=== PATIENT | male | born 1975 | race Caucasian/White ===

== ENCOUNTER 2016-04-27 17:25 | Inpatient (IN) | payer OTHER ==
[~2016-04-27] VITALS: Ht 175.3 cm; Wt 217.7 kg
--- NOTE | 2016-04-27 17:25 | NUR ---
Patient was BIBA at this time.
[2016-04-27 17:30] VITALS: BP 125/44
[2016-04-27] MEDS ORDERED: ASPIRIN81 M1 PO (17:34)
[2016-04-27] MEDS ORDERED: GLUCOPHAGE XR500 MG PO (17:34)
[2016-04-27] MEDS ORDERED: ZESTRIL2.5 MG PO (17:34)
[2016-04-27] MEDS ORDERED: PRAVACHOL20 MG PO (17:34)
--- NOTE | 2016-04-27 18:36 | NUR ---
Patient taken to bed 07.
--- NOTE | 2016-04-27 18:50 | NUR ---
PATIENT PRESENTS TO ED WITH C/O RIGHT FOOT PAIN X1 WEEK. PT STATES FOOT IS "LEAKING" . DENIES N/V/D; SKIN IS PINK/WARM/DRY; AAOX4 WITH EVEN AND STEADY GAIT; LUNGS CLEAR BL; HR EVEN AND REGULAR; PT DENIES ANY FEVER, CP, SOB, OR COUGH AT THIS TIME; PATIENT STATES PAIN OF 0/10 AT THIS TIME; VSS; PATIENT POSITIONED FOR COMFORT; HOB ELEVATED; BEDRAILS UP X2; BED DOWN. ER MD MADE AWARE OF PT STATUS.
[2016-04-27] MEDS ORDERED: KETOROLAC 30 MG/ML VIAL IVP ONE (19:35)
[2016-04-27] MEDS ORDERED: MORPHINE SULFATE 4 MG/ML SYR IVP ONE (20:35)
[2016-04-27] MEDS ORDERED: ceFAZolin 1,000 MG VIAL ONE (20:42)
--- NOTE | 2016-04-27 20:59 | NUR ---
PT RESTING IN BED AWAITING FOR A ROOM. PT ON MONITOR RECEIVING ANTIBIOTICS VIA IV, NO S/S OF DISTRESS NOTED, VSS. MOTEHR AT BEDSIDE.
--- NOTE | 2016-04-27 21:42 | NUR ---
Patient will be admitted to care of DR MORE. Admited to MED SURG. Will go to room 125 A. Belongings list completed. Report to JERRY GERARDO.
[2016-04-27] MEDS ORDERED: LORazepam 2 MG/ML VIAL IVP PRN (21:50)
[2016-04-27] MEDS ORDERED: VANCOMYCIN PER PHARMACY MC PRN (21:50)
[2016-04-27] MEDS ORDERED: ACETAMINOPHEN 325 MG TAB PO PRN (21:50)
[2016-04-27] MEDS ORDERED: ONDANSETRON 4 MG/2 ML VIAL IVP PRN (21:50)
[2016-04-27] MEDS ORDERED: MORPHINE SULFATE 2 MG/ML SYR IVP PRN (21:50)
--- NOTE | 2016-04-27 22:15 | NUR ---
PT TRASFERRED TO MED SURG VIA AUDRA BY ESTHER, EMT AND PEBBLES, EMT. NO S/S OF DISTRESS DURING TRASFER.
--- NOTE | 2016-04-27 22:20 | NUR ---
Admitted from [facility] with chief complaint of BILATERAL FOOT PAIN. A 40 y/o Male, Appropriate. ALERT AWAKE ORIENTED X4. INITIAL ASSESSMENT DONE. NO S/S OF RESPIRATORY DISTRESS OR SOB NOTED. ON O2 @ 2L/MIN VIA NASAL CANULA. SWELLING ON BOTH FEET NOTED D/T CELLULITIS. NO C/O PAIN OR ANY DISCOMFORT AT THIS TIME. PLAN OF CARE REVIEWED TO PT AND FAMILY AT BEDSIDE AND VERBALIZED UNDERSTANDING. oriented to call light, bed, phone,television, bathroom, smoking policy, visiting hours, procedures, ID bracelet on. Belongings list checked. CALL LIGHT WITHIN REACH. WILL CONTINUE TO MONITOR.
[2016-04-27] MEDS ORDERED: VANCOMYCIN 1GM/DEXT 5% PREMIX 400 ML IV SCH ×2 (22:40→23:21)
[2016-04-27] MEDS: LEVOFLOXACIN 500 MG/D5W PREMIX 100 ML IV SCH (22:48)
[2016-04-27] MEDS: NACL 0.9% 1,000 ML IV SCH (22:48)
[2016-04-27] MEDS ORDERED: VANCOMYCIN 1,000 MG VIAL ONE (23:54)
[2016-04-27] MEDS ORDERED: CLINDAMYCIN 600 MG/4 ML VIAL ONE (23:54)
[2016-04-28] VITALS: BP 137/54
--- NOTE | 2016-04-28 02:30 | NUR ---
PT IS STILL AWAKE RIGHT NOW LYING ON HIS BED WATCHING TV COMFORTABLY. DENIES ANY PAIN RIGHT NOW. ALL NEEDS ARE ATTENDED. CALL LIGHT WITHIN REACH. WILL CONTINUE TO MONITOR.
[2016-04-28] MEDS: CLINDAMYCIN 600 MG in DEXTROSE 5% 50 ML IV SCH ×3 (04:17→21:10)
--- NOTE | 2016-04-28 05:30 | NUR ---
AM CARE RENDERED. BED LINEN CHANGED. INSTRUCTED PT TO REPOSITION. KEPT CLEAN AND DRY. CALL LIGHT WITHIN REACH. WILL CONTINUE TO MONITOR.
--- NOTE | 2016-04-28 07:22 | NUR ---
PT HAS NO S/S OF ANY DISCOMFORT. PLAN OF CAR ENDORSED TO JEANNINE EDWARDS AT BEDSIDE FOR CONTINUITY OF CARE.
--- NOTE | 2016-04-28 07:30 | NUR ---
RECEIVED REPORT FROM JERRY GERARDO. PT IS AAO X4, JORDAN LOWER LEG SWELLING/CELLULITIS, IV ON LEFT ARM, PATENT AND INTACT INFUSING FLUID WELL. INITIAL ASSESSMENT DONE, PT IS ON O2 2L NC, NO S/S OF RESPIRATORY DISTRESS OR DISCOMFORT NOTED, DISCUSSED PLAN OF CARE, PT VERBALIZED UNDERSTANDING, SAFETY/FALL PRECAUTION ENFORCED, CALL LIGHT WITHIN REACH, WILL CONTINUE TO MONITOR.
[2016-04-28 08:00] VITALS: BP 125/79
--- NOTE | 2016-04-28 08:28 | NUR ---
PATIENT HAS BEEN SCREENED AND CATEGORIZED HIGH NUTRITION RISK. PATIENT WILL BE SEEN WITHIN 1-2 DAYS OF ADMISSION. 04/28/16-04/29/[address]
[2016-04-28] MEDS ORDERED: VANCOMYCIN 2,000 MG in DEXTROSE 5% 500 ML IV SCH (09:00)
--- NOTE | 2016-04-28 09:24 | NUR ---
PT SLEEPING IN BED. NO S/S OF RESPIRATORY DISTRESS OR DISCOMFORT NOTED, CALL LIGHT WITHIN REACH, WILL CONTINUE TO MONITOR.
[2016-04-28] MEDS: ENOXAPARIN 40 MG/0.4 ML SYR SUBQ SCH (09:54)
--- NOTE | 2016-04-28 09:55 | NUR ---
DUE MEDS GIVEN. PT TOLERATED WELL. AWAITING ON THE VANCOMYCIN FROM PHARMACY.
[2016-04-28] MEDS: NACL 0.9% 1,000 ML IV SCH (11:32)
--- NOTE | 2016-04-28 12:54 | NUR ---
PT RESTING IN BED WATCHING TV. DUE MEDICATIONS GIVEN.
--- NOTE | 2016-04-28 13:30 | NUR ---
FAXED INITIAL REVIEW TO [facility] [phone] PHONE JONA [phone]
[2016-04-28] MEDS ORDERED: INSULIN LISPRO SLIDING SCALE 100 UNITS/ML VIAL SUBQ PRN (14:10)
--- NOTE | 2016-04-28 15:25 | NUR ---
ASSISTED PT TO GO TO THE RESTROOM, PT TOLERATED WELL, LINEN CHANGED BY MEDICARE INSURANCE SPECIALIST, AND AWAITING FOR PT TO FINISH USING THE RESTROOM, WILL CONTINUE TO MONITOR.
[2016-04-28 16:00] VITALS: BP 123/63
[2016-04-28] MEDS: BLOOD GLUCOSE MONITORING 1 DEV DEV FS SCH ×2 (17:03→21:04)
[2016-04-28] MEDS: HYDROcodone/APAP 5/325 MG 1 TAB TAB PO PRN ×2 (17:37→20:59)
--- NOTE | 2016-04-28 17:55 | NUR ---
DINNER SERVED, PT HAS GOOD APPETITE, ALL NEEDS MET AT THIS TIME, CALL LIGHT WITHIN REACH, MOTHER AT BEDSIDE, WILL CONTINUE TO MONITOR.
--- NOTE | 2016-04-28 19:26 | NUR ---
ENDORSED PT TO LVN. JOSE ALFREDO FOR CONTINUITY OF CARE. PT IS STABLE AT THIS TIME.
--- NOTE | 2016-04-28 19:27 | NUR ---
RECD. RESTING IN BED, AWAKE, A/OX4, OBESE. RESPIRATION EVEN AND UNLABORED. IV OF NS AT 75 ML/HR INFUSING LEFT ARM G22. WITH SLIGHT REDNESS AND SWELLING ON BOTH LOWER EXTREMITIES, REFUSED TO ELEVATE BLE ON PILLOWS BECAUSE IT WILL CAUSE HIM PAIN, EXPLAINED THE IMPORTANCE OF ELEVATION BUT STILL REFUSED. ON IV ANTIBIOTICS. PLAN OF CARE FOR THE SHIFT DISCUSSED. VERBALIZED UNDERSTANDING. DENIES PAIN 0/10. MOTHER AT THE BEDSIDE.
--- NOTE | 2016-04-28 20:00 | NUR ---
Patient's Plan of Care was discussed and reviewed with SHELLFISH SORTER: JOSE ALFREDO CROWDER
--- NOTE | 2016-04-28 21:05 | NUR ---
SNACK GIVEN FOR THE NIGHT, ATE 100%. BS -159, REFUSED COVERAGE, EXPLAINED IT'S MD'S ORDER TO MAINTAINED BLOOD SUGAR AT A NORMAL LEVEL, STILL REFUSED. PATIENT IS ASYMPTOMATIC.
[2016-04-28] MEDS: LEVOFLOXACIN 500 MG/D5W PREMIX 100 ML IV SCH (21:18)
[2016-04-29] VITALS: BP 108/55
--- NOTE | 2016-04-29 01:00 | NUR ---
STILL AWAKE, REQUESTED TO GET OUT OF BED TO SIT ON THE CHAIR. ASSISTED BY TWO LIQUOR INSPECTOR SIT ON THE CHAIR.
--- NOTE | 2016-04-29 02:00 | NUR ---
RESTING IN BED AFTER SITTING ON THE CHAIR. STILL WATCHING CARTOONS, ADVISED TO GO TO SLEEP, REMINDED OF THE IMPORTANCE OF SLEEP, VERBALIZED UNDERSTANDING.
--- NOTE | 2016-04-29 02:30 | NUR ---
SLEEPING COMFORTABLY IN BED.
--- NOTE | 2016-04-29 05:00 | NUR ---
AMBULATED TO THE BR TO VOID. ASSISTED BACK TO BED AFTER VOIDING. SAFETY MAINTAINED.
[2016-04-29] MEDS: CLINDAMYCIN 600 MG in DEXTROSE 5% 50 ML IV SCH ×3 (05:03→20:24)
--- NOTE | 2016-04-29 06:50 | NUR ---
RESTING IN BED COMFORTABLY, CONDITION REMAIN STABLE. WILL ENDORSED TO AM NURSE FOR CONTINUITY OF CARE.
--- NOTE | 2016-04-29 07:20 | NUR ---
ENDORSED TO PAULETTE RN FOR CONTINUITY OF CARE.
--- NOTE | 2016-04-29 07:21 | NUR ---
PT AWAKE ALERT AND ORIENTED X4. WITH O2 AT 2L/MIN VIA NC, NO SIGNS OF ACUTE DISTRESS. SKIN IS WARM AND DRY. PT WITH DX OF LOWER EXTREMITIES CELLULITIS, NO SIGNS OF ANY BOWEL/BLADDER DISCOMFORT. NO C/O OF AND PAIN AT THIS TIME. WITH GOOD ROM ON BILATERAL UPPER EXTREMITIES. NEEDS ASSIST ON AMBULATION AND TRANSFER TO CHAIR. SAFETY PRECAUTIONS MAINTAINED. ALL NEEDS ATTENDED, CALL LIGHT WITHIN REACH.
[2016-04-29] MEDS: BLOOD GLUCOSE MONITORING 1 DEV DEV FS SCH ×4 (07:32→20:29)
[2016-04-29 08:00] VITALS: BP 127/63
[2016-04-29] MEDS: ENOXAPARIN 40 MG/0.4 ML SYR SUBQ SCH (08:34)
--- NOTE | 2016-04-29 09:59 | NUR ---
PATIENT HAS BEEN SCREENED AND CATEGORIZED HIGH NUTRITION RISK. PATIENT WILL BE SEEN WITHIN 1-2 DAYS OF ADMISSION. 04/28/16-04/29/[address]
[2016-04-29] MEDS: HYDROcodone/APAP 5/325 MG 1 TAB TAB PO PRN ×3 (10:34→21:44)
--- NOTE | 2016-04-29 12:00 | NUR ---
FAXED CONCURRENT REVIEW TO [place] [phone] PHONE JONA [phone]
[2016-04-29 16:00] VITALS: BP 125/56
--- NOTE | 2016-04-29 16:00 | NUR ---
WAS SEEN BY Jeanna ARROYO . RECEIVED NEW ORDERS. JUNE D/C HOME ANTONIO NI WITH [facility] FOR WOUND CARE ON BLE. NOTED AND CARRIED OUT.
--- NOTE | 2016-04-29 16:30 | NUR ---
WAS SEEN BY WOUND CARE NURSE. TREATMENT RENDERED ON BLE, TO CONTINUE ROUTINELY ORDERED.
--- NOTE | 2016-04-29 17:05 | NUR ---
04/29/16 RD INITIAL ASSESSMENT COMPLETED PLEASE REFER TO NUTRITION ASSESSMENT UNDER CARE ACTIVITY FOR ESTIMATED NUTRITIONAL NEEDS. RD RECOMMENDATIONS: 1. CONTINUE CCHO 60 GM DIET TOLERATED PER MD --PT MEETING 100% OF ESTIMATED KCAL AND PROTEIN NEEDS 2. RD PROVIDED PT WITH DM DIET EDUCATION 3. RD WILL F/U 5-7 DAYS; LOW RISK. DEWAYNE NAZARIO RD
--- NOTE | 2016-04-29 18:43 | NUR ---
PT ALERT AND RESPONSIVE, NO SIGNS OF ACUTE DISTRESS. WILL ENDORSE TO ONCOMING MAINFRAME CONSULTANT NURSE FOR CONTINUITY OF CARE.
--- NOTE | 2016-04-29 19:20 | NUR ---
RECEIVED REPORT FROM JERRY CALDWELL AT BEDSIDE. INITIAL ASSESSMENT COMPLETED. PT AAOX4. PT HAS BILATERAL LEG CELLULITIS. PT AMBULATES FROM BED TO CHAIR. PT HAS IV TO LEFT AC G 22 SL; ASYMPTOMATIC, PATENT AND INTACT. ORIENTED PT TO ROOM AND SURROUNDINGS AND USE OF CALL LIGHT. EXPLAINED PLAN OF CARE TO PT AND HE VERBALIZES UNDERSTANDING. WILL CONTINUE TO MONITOR PT. CALL LIGHT WITHIN REACH.
--- NOTE | 2016-04-29 20:30 | NUR ---
2100 CLEOCIN INFUSING NOW, PT STABLE. WILL CONTINUE TO MONITOR PT.
[2016-04-29] MEDS: LEVOFLOXACIN 500 MG/D5W PREMIX 100 ML IV SCH (21:12)
--- NOTE | 2016-04-29 21:42 | NUR ---
PT COMPLAINING OF LEG PAIN 07/25 VS STABLE, WILL MEDICATE ORDERED.
--- NOTE | 2016-04-29 22:20 | NUR ---
PT COMPLAINING OF PAIN ON IV SITE; IV REMOVED WITH TIP INTACT. PT TOLERATED IT WELL.
--- NOTE | 2016-04-29 22:30 | NUR ---
NEW IV STARTED ON RIGHT FOREARM G 22; ASYMPTOMATIC PATENT AND INTACT. PT TOLERATED IT WELL. WILL CONTINUE TO MONITOR PT.
[2016-04-30] VITALS: BP 137/71
--- NOTE | 2016-04-30 00:05 | NUR ---
CHECKED ON PT. VS ARE ARE STABLE, WILL CONTINUE TO MONITOR PT.
--- NOTE | 2016-04-30 00:35 | NUR ---
PT SITTING ON CHAIR USING HIS CELL PHONE. PT STABLE, WILL CONTINUE TO MONITOR PT.
[2016-04-30] MEDS ORDERED: VITAMIN A/VITAMIN D OINT 113 GM TUBE TP SCH (01:00)
--- NOTE | 2016-04-30 01:26 | NUR ---
A & D OINTMENT NOT APPLIED TO PT. MEDICATION NOT AVAILABLE, CHARGE NURSE AWARE. WILL CONTINUE TO MONITOR PT.
--- NOTE | 2016-04-30 02:28 | NUR ---
PT SITTING ON BED, WATCHING TV. PT DENIES PAIN OR DISCOMFORT. CALL LIGHT WITHIN REACH.
[2016-04-30] MEDS: CLINDAMYCIN 600 MG in DEXTROSE 5% 50 ML IV SCH (05:01)
--- NOTE | 2016-04-30 05:08 | NUR ---
0500 CLEOCIN INFUSING NOW. PT SITTING ON CHAIR. PT STABLE, WILL CONTINUE TO MONITOR PT.
--- NOTE | 2016-04-30 07:15 | NUR ---
ENDORSED PT IN STABLE CONDITION TO RN PAULETTE FOR CONTINUITY OF CARE.
--- NOTE | 2016-04-30 07:16 | NUR ---
PT AWAKE ALERT AND ORIENTED X4. BREATHING EVENLY AND UNLABORED. NO SIGNS OF ACUTE DISTRESS. SKIN IS WARM AND DRY. PT WITH DX OF LOWER EXTREMITIES CELLULITIS, NO SIGNS OF ANY BOWEL/BLADDER DISCOMFORT. NO C/O OF AND PAIN AT THIS TIME. WITH GOOD ROM ON BILATERAL UPPER EXTREMITIES. NEEDS ASSIST ON AMBULATION AND TRANSFER TO CHAIR. SAFETY PRECAUTIONS MAINTAINED. ALL NEEDS ATTENDED, CALL LIGHT WITHIN REACH.
[2016-04-30] MEDS: BLOOD GLUCOSE MONITORING 1 DEV DEV FS SCH ×2 (07:23→10:42)
[2016-04-30 08:00] VITALS: BP 123/69
[2016-04-30] MEDS: ENOXAPARIN 40 MG/0.4 ML SYR SUBQ SCH (08:52)
--- NOTE | 2016-04-30 08:56 | NUR ---
SS NOTE: PER ERICKA FROM [facility] ([phone]), PT IS ALREADY ON SERVICE WITH THEM AND SHE WILL CALL PT TO SCHEDULE AN APPT. SHE WAS MADE AWARE THAT PT WILL BE DISCHARGED TODAY.
[2016-04-30] MEDS: HYDROcodone/APAP 5/325 MG 1 TAB TAB PO PRN (10:23)
--- NOTE | 2016-04-30 10:45 | NUR ---
CM NOTE CONCURRENT REVIEW FAXED TO [facility] / FAX# [phone]
--- NOTE | 2016-04-30 11:00 | NUR ---
PT MAY BE D/C'D WITH [facility] ORDERED. EDUCATED ON CONTINUING PLAN OF CARE. REVIEWED DISCHARGE PRESCRIPTIONS INDICATIONS AND SIDE EFFECTS. PT VERBALIZED UNDERSTANDING. SPOKE WITH PT'S FAMILY AND TO PICKUP PT AFTER LUNCH. CONTINUE TO MONITOR.
[2016-04-30] MEDS ORDERED: CLEOCIN HCL300 MG PO (11:26)
[2016-04-30] MEDS ORDERED: LEVAQUIN750 MG PO (11:26)
--- NOTE | 2016-04-30 12:50 | NUR ---
PT ALERT AND RESPONSIVE, NO SIGNS OF ACUTE DISTRESS. JUNE D/C HOME ORDERED. IV LINE AND WRIST BANDS REMOVED. PERSONAL BELONGINGS WITH PT UPON D/C. PICKED UP BY FAMILY AND WHEELED TO FRONT LOBBY VIA WC. TO GO HOME VIA PRIVATE AUTO.
== END 2016-04-30 12:50 | disposition home health service (06) | DRG 603 ==
LOC: MED 17:25 → MMU 21:33 → MTU 22:12
PROVIDERS: ADMIT Hospitalist; ATTEND Hospitalist
DX: L03.116 Cellulitis of left lower limb (principal); Z68.45 Body mass index [BMI] 70 or greater, adult; L03.115 Cellulitis of right lower limb; E11.9 Type 2 diabetes mellitus without complications; E66.01 Morbid (severe) obesity due to excess calories; I89.0 Lymphedema, not elsewhere classified; Z87.891 Personal history of nicotine dependence; Z79.82 Long term (current) use of aspirin; Z79.899 Other long term (current) drug therapy; Z79.84 Long term (current) use of oral hypoglycemic drugs

== ENCOUNTER 2016-05-23 18:39 | Emergency (ER) | payer OTHER ==
[~2016-05-23] VITALS: Ht 175.3 cm; Wt 217.7 kg
[~2016-05-23 18:39] MED LIST: ASPI81CT89 PO; CLIN300C2 PO; LEVO750T2 PO; LISI2.5T12 PO; METF500T2 PO; PRAV20TA2 PO
--- NOTE | 2016-05-23 18:40 | NUR ---
PT BIBA TO BED 3 AT THIS TIME.
[2016-05-23 18:43] VITALS: BP 136/78
--- NOTE | 2016-05-23 18:44 | NUR ---
40M BIBA FROM HOME C/O THORBBING, RT INTERMITTENT HIP PAIN, NON-RADIATING, 10/10 X TODAY; PT STATES PAIN 0/10 AT THIS TIME, BUT WHEN PAIN PRESENT, 10/10. PT DENIES PAIN OR INJURY TO SITE; PT NOTED W/ OPEN WOUND TO LEFT LEG; NO BLEEDING NOTED AT THIS TIME; PT STATES WOUND "FROM VARICOSE VEINS" X 1 MONTH; PT A&OX4, BL LUNG SOUNDS CLEAR, RR EVEN/UNLABORED, SKIN IS WARM/DRY AT THIS TIME; PT AMBULATES W/ CANE; PT RESTING IN BED W/ HOB ELEVATED AND IN LOWEST POSITION; POSITIONED FOR COMFORT; ER MD MADE AWARE OF STATUS. WILL CONTINUE TO MONITOR.
--- NOTE | 2016-05-23 19:02 | NUR ---
PA student evaluating patient at bedside.
--- NOTE | 2016-05-23 19:07 | NUR ---
MOTHER AT BEDSIDE; PT APPEARS TO BE RESTING COMFORTABLY IN BED; RR EVEN/UNLABORED, WILL CONTINUE TO MONITOR.
--- NOTE | 2016-05-23 19:12 | NUR ---
Pt report given to JERRY TUTTLE. Transfer of care at this time.
--- NOTE | 2016-05-23 19:15 | NUR ---
GOT REPORT FROM JERRY MOSES. PT. RESTING IN BED, NO S/SX OF DISTRESS.
--- NOTE | 2016-05-23 19:22 | NUR ---
Dr. Vazquez evaluating patient at bedside.
[2016-05-23] MEDS ORDERED: HYDROmorphone PFS 2 MG/ML SYR IM ONE (19:55)
[2016-05-23 20:18] LABS: BASOPHILS # (AUTO) 0.3 K/uL (0.00-0.22); BASOPHILS % (AUTO) 3.8 % (0.0-2.0); EOSINOPHILS # (AUTO) 0.4 K/uL (0-0.4); EOSINOPHILS % (AUTO) 5.4 % (0.0-4.0); HEMATOCRIT 41.2 % (36-52); HEMOGLOBIN 12.8 g/dL (12.0-18.0); LYMPHOCYTES # (AUTO) 1.1 K/uL (2.0-11.5); LYMPHOCYTES % (AUTO) 14.1 % (20.5-51.1); MEAN CORPUSCULAR HEMOGLOBIN 26 pg (27-31); MEAN CORPUSCULAR HGB CONC 31 g/dL (33-37); MEAN CORPUSCULAR VOLUME 84 fL (80-94); MONOCYTES # (AUTO) 0.2 K/uL (0.8-1.0); MONOCYTES % (AUTO) 3.1 % (1.7-9.3); NEUTROPHILS # (AUTO) 5.7 K/uL (1.8-7.7); NEUTROPHILS % (AUTO) 73.6 % (42.2-75.2); PLATELET COUNT (AUTO) 330 K/uL (140-450); RED BLOOD CELL COUNT(AUTO) 4.94 MIL/uL (4.20-6.10); RED CELL DISTRIBUTION WIDTH 15.2 % (11.6-13.7); WHITE BLOOD COUNT (AUTO) 7.7 K/uL (4.8-10.8)
[2016-05-23 20:25] LABS: ANION GAP 9.7 (8-16); CARBON DIOXIDE 31.7 mmol/L (21-32); CREATININE 0.8 mg/dL (0.6-1.3); POTASSIUM 4.4 mmol/L (3.5-5.1)
[2016-05-23 20:30] LABS: ALBUMIN 3.1 g/dL (3.4-5.0); TOTAL BILIRUBIN 0.3 mg/dL (0.0-1.0); TOTAL PROTEIN, SERUM 8.5 g/dL (6.4-8.2)
[2016-05-23 20:34] LABS: INR 1.2 (0.8-1.2); PARTIAL THROMBOPLASTIN TIME 28.1 secs (22-35.6); PROTHROMBIN TIME 11.1 secs (10.8-13.4)
--- NOTE | 2016-05-23 21:23 | NUR ---
PT TAKEN TO XRAY
--- NOTE | 2016-05-23 23:00 | NUR ---
DRESSING LT. LEG WOUND AND COVER WITH DRY DRESSING
[2016-05-23 23:25] VITALS: BP 110/61
--- NOTE | 2016-05-23 23:25 | NUR ---
Patient discharged with v/s stable. Written and verbal after care instructions given and explained. Patient alert, oriented and verbalized understanding of instructions. Ambulatory with steady gait USING GREYSON. All questions addressed prior to discharge. ID band removed. Patient advised to follow up with PMD. Rx of PERCUCET 5/325 MG given. Patient educated on indication of medication including possible reaction and side effects. Opportunity to ask questions provided and answered.
== END 2016-05-23 23:25 | disposition home or self-care (01) ==
LOC: MED 18:39
DX: M25.551 Pain in right hip (principal); E11.9 Type 2 diabetes mellitus without complications; I10 Essential (primary) hypertension; Z87.891 Personal history of nicotine dependence
CPT/HCPCS: 36415; 71010; 73502; 80053; 82948; 85025; 85610; 85730; 96372; 99285; J1170

== ENCOUNTER 2016-06-05 13:40 | Inpatient (IN) | payer OTHER ==
[~2016-06-05] VITALS: Ht 175.3 cm; Wt 216.4 kg
[~2016-06-05 13:40] MED LIST changes: -ASPI81CT89 PO; +ASPIRIN81 M1 PO; +CLEOCIN HCL300 MG PO; -CLIN300C2 PO; +GLUCOPHAGE XR500 MG PO; +LEVAQUIN750 MG PO; -LEVO750T2 PO; -LISI2.5T12 PO; -METF500T2 PO; -PRAV20TA2 PO; +PRAVACHOL20 MG PO; +ZESTRIL2.5 MG PO
[2016-06-05 13:47] VITALS: BP 123/85
--- NOTE | 2016-06-05 13:55 | NUR ---
PT BIBA FOR EVALUATION OF JORDAN LEG PAIN AND RIGHT HIP PAIN X1 HOUR. HX DM, HTN, HYPERLIPIDEMIA, MORBID OBESITY; DENIES N/V/D; SKIN IS PINK/WARM/DRY; AAOX4 WITH EVEN AND STEADY GAIT; LUNGS CLEAR BL; HR EVEN AND REGULAR; PT DENIES ANY FEVER, CP, SOB, OR COUGH AT THIS TIME; PATIENT STATES PAIN OF 10/10 AT THIS TIME; VSS; PATIENT POSITIONED FOR COMFORT; HOB ELEVATED; BEDRAILS UP X2; BED DOWN. ER MD MADE AWARE OF PT STATUS.
--- NOTE | 2016-06-05 14:45 | NUR ---
ADEBAYOO PT TAKEN TO XRAY VIA GURNEY BY [facility] [employer] FRANKIE
[2016-06-05] MEDS ORDERED: HYDROmorphone 1 MG/ML AMP IVP ONE (16:00)
[2016-06-05] MEDS ORDERED: ONDANSETRON 4 MG/2 ML VIAL IVP ONE (16:00)
[2016-06-05] MEDS ORDERED: NACL 0.9% 1,000 ML IV ONE (16:00)
[2016-06-05] MEDS ORDERED: VANCOMYCIN 1,000 MG in DEXTROSE 5% 250 ML IV ONE (16:00)
[2016-06-05] MEDS ORDERED: cefTRIAXone 1,000 MG VIAL ONE (16:21)
[2016-06-05] MEDS ORDERED: VANCOMYCIN 1,000 MG VIAL ONE ×2 (16:22→23:31)
--- NOTE | 2016-06-05 17:43 | NUR ---
Patient will be admitted to care of DR NEVAREZ. Admited to MED/SURG. Will go to room 113. Belongings list completed. Report to JERRY COYLE.
--- NOTE | 2016-06-05 18:50 | NUR ---
PATIENT ARRIVED TO THE UNIT FROM ER. PATIENT AWAKE, ALERT AND ORIENTED. NO S/S OF DISTRESS NOTED. PATIENT BREATHING ON ROOM AIR. BLE EDEMA AND CELLULITIS NOTED. DRAINAGE NOTED TO BLE. IV SITE NOTED TO LEFT AC. BED LOWERED WITH CALL LIGHT WITHIN REACH. WILL CONTINUE TO MONITOR. WAITING FOR DR'S ORDERS
[2016-06-05 19:05] VITALS: BP 122/53
--- NOTE | 2016-06-05 19:32 | NUR ---
RECEIVED FROM AM RN IN BED . AWAKE AND ALERT. EDEMA TO LOWER EXTREMITIES. DX. OF BILATERAL LOWER EXTREMITIES CELLULITIS. PT. ABLE TO VERBALIZE NEEDS WELL. NO SOB. CALL LIGHT WITH IN REACH. CARE PLANS FOR THE NIGHT DISCUSSED WITH HIM.
[2016-06-05] MEDS ORDERED: NACL 0.9% 1,000 ML IV SCH (19:53)
[2016-06-05] MEDS ORDERED: ONDANSETRON 4 MG/2 ML VIAL IVP PRN (19:55)
[2016-06-05] MEDS ORDERED: ACETAMINOPHEN 325 MG TAB PO PRN (19:55)
[2016-06-05] MEDS ORDERED: MORPHINE SULFATE 4 MG/ML SYR IVP PRN (19:55)
[2016-06-05] MEDS ORDERED: LORazepam 2 MG/ML VIAL IVP PRN (19:55)
[2016-06-05] MEDS ORDERED: INSULIN LISPRO SLIDING SCALE 100 UNITS/ML VIAL SUBQ PRN (19:55)
[2016-06-05] MEDS ORDERED: DEXTROSE 50% 50 ML SYR IVP PRN (19:55)
[2016-06-05] MEDS ORDERED: VANCOMYCIN PER PHARMACY MC PRN (19:55)
[2016-06-05] MEDS: BLOOD GLUCOSE MONITORING 1 DEV DEV FS SCH (20:36)
[2016-06-05] MEDS ORDERED: CLINDAMYCIN 600 MG/4 ML VIAL ONE (20:51)
[2016-06-05] MEDS: CLINDAMYCIN 600 MG in DEXTROSE 5% 50 ML IV SCH (21:22)
[2016-06-05] MEDS: SIMVASTATIN 20 MG TAB PO SCH (21:23)
--- NOTE | 2016-06-05 21:43 | NUR ---
PT. IN BARIATRIC BED. "I AM READY TO SLEEP" CALL LIGHT WITH IN REACH. ENCOURAGED TO CALL FOR ANY HELP HE MAY NEED OR IF IN PAIN. "OK" CALL LIGHT WITH IN REACH.
--- NOTE | 2016-06-05 23:48 | NUR ---
PT. STILL AWAKE WATCHING TV. NO COMPLAINTS DONE. NO NOTED ADVERSE REACTIONS FROM IV ABT GIVEN.
[2016-06-05 23:54] VITALS: BP 126/58
[2016-06-06] MEDS ORDERED: VANCOMYCIN 1GM/DEXT 5% PREMIX 200 ML IV SCH
[2016-06-06 00:12] VITALS: BP 124/62
--- NOTE | 2016-06-06 02:00 | NUR ---
STILL AWAKE AND WATCHING TV. ENCOURAGED TO SLEEP. "OH, I SLEEP IN AND OUT. " DENIES ANY PAIN AT THIS TIME.
--- NOTE | 2016-06-06 04:47 | NUR ---
SLEEPING AT THIS TIME. NO RESTLESSNESS NOTED. CALL LIGHT WITH IN REACH.
[2016-06-06] MEDS ORDERED: CLINDAMYCIN 600 MG/4 ML VIAL ONE (05:11)
[2016-06-06] MEDS: BLOOD GLUCOSE MONITORING 1 DEV DEV FS SCH ×4 (05:12→20:57)
[2016-06-06] MEDS: CLINDAMYCIN 600 MG in DEXTROSE 5% 50 ML IV SCH ×3 (05:25→20:57)
--- NOTE | 2016-06-06 07:26 | NUR ---
SLEEPING AT THIS TIME. ENDORSED TO THE NEXT RN FOR CONTINUITY OF CARE. CALL LIGHT WITH IN REACH.
--- NOTE | 2016-06-06 07:45 | NUR ---
RECEIVED PT LYING IN BED COMFORTABLY IN BED SLEEPING AND WAS IN NO DISTRESS. PT ROUSABLE AND STATED THAT HE HAD RT HIP PAIN 08/24 BUT NO PAIN MED REQUIRED AT THIS TIME. SHIFT ASSESSMENT DONE AND CHARTED. PLAN OF CARE MEDS, TREATMENTS AND SAFETY DISCUSSED WITH PT AND PT VERBALIZED UNDERSTANDING. WILL CONTINUE TO CHECK ON PT.
[2016-06-06 08:00] VITALS: BP 108/68
[2016-06-06] MEDS: FUROSEMIDE 40 MG/4 ML VIAL IVP SCH (08:14)
[2016-06-06] MEDS: LISINOPRIL 5 MG TAB PO SCH (08:15)
[2016-06-06] MEDS: ENOXAPARIN 40 MG/0.4 ML SYR SUBQ SCH (08:21)
[2016-06-06] MEDS: HYDROcodone/APAP 5/325 MG 1 TAB TAB PO PRN ×3 (08:35→21:24)
--- NOTE | 2016-06-06 08:35 | NUR ---
PT C/O PAIN 08/24 RT HIP AND PT MEDICATED WITH NORCO PER PRN ORDER. PT SITTING UP ON CHAIR FOR BREAKFAST AND PT TOLERATED DIET, FLUIDS AND SCHEDULED PO MEDS WELL.
[2016-06-06] MEDS ORDERED: NON-FORMULARY ITEM (Metformin HCl* (Glucophage Xr*) 1 TAB) PO SCH (09:00)
--- NOTE | 2016-06-06 09:05 | NUR ---
PT STATED THAT HIS RT HIP PAIN STILL PAINFUL BUT MORE TOLERABLE 05/25.
--- NOTE | 2016-06-06 09:29 | NUR ---
PATIENT HAS BEEN SCREENED AND CATEGORIZED HIGH RISK. PATIENT WILL BE SEEN WITHIN 1-2 DAYS OF ADMISSION. 06/07/[address]
--- NOTE | 2016-06-06 09:40 | NUR ---
IV SITE NOTED TO BE LEAKING AND SAME REMOVED WITH OLD CATH TIP INTACT. NEW G22 IV INSERTED TO PT'S LEFT HAND ASEPTICALLY AND PT TOLERATED IT WELL.
[2016-06-06] MEDS: VANCOMYCIN 2,000 MG in DEXTROSE 5% 250 ML IV SCH ×2 (10:09→21:24)
--- NOTE | 2016-06-06 12:30 | NUR ---
PT TOOK DIET AND FLUIDS WELL. PT'S MOTHER VISITING AT THIS TIME.
--- NOTE | 2016-06-06 13:01 | NUR ---
06/06/16 RD INITIAL ASSESSMENT COMPLETED PLEASE REFER TO NUTRITION ASSESSMENT UNDER CARE ACTIVITY FOR ESTIMATED NEEDS. RD RECOMMENDATIONS: 1. CONTINUE CURRENT DIET TOLERATED. 2. RD WILL F/U 5-7 DAYS; LOW RISK TERRI KELLEY RD
--- NOTE | 2016-06-06 14:18 | NUR ---
PT RESTING IN BED COMFORTABLY. NO CHANGES NOTED IN PT'S CONDITION.
--- NOTE | 2016-06-06 14:46 | NUR ---
PT MEDICATED WITH NORCO FOR C/O RT HIP PAIN 09/24. PT'S MOTHER PRESENT AT BEDSIDE.
--- NOTE | 2016-06-06 15:46 | NUR ---
PT UP IN CHAIR AND VOICED NO C/O PAIN AT THIS TIME. NO CHANGES NOTED IN PT'S CONDITION.
[2016-06-06 16:00] VITALS: BP 110/51
--- NOTE | 2016-06-06 18:43 | NUR ---
PT TOOK DIET AND FLUIDS WELL. NO C/O PAIN VOICED AT THIS TIME.
--- NOTE | 2016-06-06 19:20 | NUR ---
REPORT GIVEN TO QUETA RN AT BEDSIDE. PT LYING IN BED COMFORTABLY AND VOICED NO C/O PAIN/ DISCOMFORT.
--- NOTE | 2016-06-06 19:21 | NUR ---
RECEIVED REPORT FROM DAY SHIFT NURSE. PT IS AAOX4, RESTING IN BED, DENIES PAIN. NO S/S OF RESPIRATORY DISTRESS/DISCOMFORT NOTED. PLAN OF CARE DISCUSSED, VERBALIZED UNDERSTANDING. SAFETY MEASURES CHECKED, CALL LIGHT WITHIN REACH. WILL CONTINUE TO MONITOR.
[2016-06-06] MEDS: SIMVASTATIN 20 MG TAB PO SCH (20:58)
--- NOTE | 2016-06-06 21:26 | NUR ---
DUE MEDS GIVEN. PROVIDED DRUG INFO BENEFITS AND S/E, VERBALIZED UNDERSTANDING. PT TOLERATED WELL.
[2016-06-07] VITALS: BP 107/56
--- NOTE | 2016-06-07 | NUR ---
PT IS SITTING, RESTING. V/S CHECKED AND STABLE, DENIES PAIN. NO S/S OF RESPIRATORY DISTRESS/DISCOMFORT.
--- NOTE | 2016-06-07 03:03 | NUR ---
IV ACCIDENTALLY PULLED OUT BY THE PT. PT REFUSED TO INSERT A NEW IV LINE AND FRUSTRATED. EXPLAINED REASON FOR INSERTING A NEW LINE, VERBALIZED UNDERSTANDING. PT REQUESTED A LITTLE TIME. WILL REINSERT LATER.
--- NOTE | 2016-06-07 04:00 | NUR ---
INSERTED A NEW IV TO TH RIGHT AC # 24, PATENT, INTACT AND BLOOD RETURN NOTED.
[2016-06-07] MEDS: CLINDAMYCIN 600 MG in DEXTROSE 5% 50 ML IV SCH ×3 (04:17→21:14)
--- NOTE | 2016-06-07 06:12 | NUR ---
BLOOD SUGAR CHECKED, BSL= 133. NO INSULIN COVERAGE NEEDED.
[2016-06-07] MEDS: BLOOD GLUCOSE MONITORING 1 DEV DEV FS SCH ×4 (06:43→21:10)
--- NOTE | 2016-06-07 07:10 | NUR ---
ENDORSED REPORT TO DAY SHIFT NURSE FOR CONTINUITY OF CARE. PT IS IN STABLE CONDITION.
--- NOTE | 2016-06-07 07:30 | NUR ---
RECEIVED PT SLEEPING IN BED COMFORTABLY AND WAS IN NO DISTRESS. PT EASILY AWAKENED AND VOICED NO C/O PAIN AT THIS TIME. SHIFT ASSESSMENT DONE AND CHARTEDD. PLAN OF CARE, MEDS, TREATMENTS AND SAFETY DISCUSSED WITH PT AND PT VERBALIZED UNDERSTANDING. WILL CONTINUE TO MONITOR PT.
[2016-06-07 08:00] VITALS: BP 126/62
[2016-06-07] MEDS: FUROSEMIDE 40 MG/4 ML VIAL IVP SCH (08:57)
[2016-06-07] MEDS: LISINOPRIL 5 MG TAB PO SCH (08:58)
[2016-06-07] MEDS: ENOXAPARIN 40 MG/0.4 ML SYR SUBQ SCH (09:05)
[2016-06-07] MEDS: VANCOMYCIN 2,000 MG in DEXTROSE 5% 250 ML IV SCH ×2 (09:06→21:48)
--- NOTE | 2016-06-07 09:15 | NUR ---
PT TOOK DIET AND FLUIDS WELL. TOOK SCHEDULED PO MEDS WITHOUT ANY DIFFICULTY. Addendum: 06/07/16 at 1255 by Agency 02 JERRY RN PT ALSO MEDICATED WITH NORCO PER PRN ORDER FOR C/O RT CALF PAIN 07/25.
[2016-06-07] MEDS: HYDROcodone/APAP 5/325 MG 1 TAB TAB PO PRN ×3 (09:17→21:13)
--- NOTE | 2016-06-07 10:15 | NUR ---
PT UP IN CHAIR AND PT VOICED NO C/O PAIN AT THIS TIME.
--- NOTE | 2016-06-07 12:56 | NUR ---
PT TOOK DIET AND FLUIDS WELL. PT WENT BACK TO BED WITH STANDBY ASSISTS.
--- NOTE | 2016-06-07 15:00 | NUR ---
PT SITTING UP IN CHAIR AND VOICED NO C/O PAIN AT THIS TIME. PT'S MOTHER VISITING AT BEDSIDE.
[2016-06-07 16:02] VITALS: BP 109/54
--- NOTE | 2016-06-07 16:34 | NUR ---
PT REFUSED HUMALOG SLIDING SCALE COVERAGE PT STATED THAT HE ALREADY ATE. BS-153
--- NOTE | 2016-06-07 18:30 | NUR ---
PT VOIDING FREELY. TOOK DIET AND FLUIDS WELL. NO C/O PAIN AT THIS TIME.
--- NOTE | 2016-06-07 19:25 | NUR ---
REPORT GIVEN TO LASHAY EDWARDS AT BEDSIDE. PT LYING IN BED COMFORTABLY AND VOICED NO C/O PAIN.
--- NOTE | 2016-06-07 19:30 | NUR ---
RECEIVED REPORT FROM DAY RN AT BEDSIDE, PATIENT IS AAOX4 WAS SLEEPING, EASILY AWAKENED, ON ROOM AIR, NO SOB OR SIGN OF DISTRESS AT THIS TIME, IV TO RAC PATENT AND INTACT, PATIENT HAS BILATERAL PITTING EDEMA TO LOWER EXTREMITIES, MILD OOZING TO LEFT LEG. LAUREN. DISCUSSED PLAN OF CARE WITH PATIENT, PATIENT VERBALIZED UNDERSTANDING, SAFETY MEASURES CHECKED, CALL LIGHT WITHIN REACH. WILL CONTINUE TO MONITOR.
[2016-06-07] MEDS: SIMVASTATIN 20 MG TAB PO SCH (21:13)
--- NOTE | 2016-06-07 21:18 | NUR ---
PM MED ADMINISTERED PATIENT TOLERATED WELL, CALL LIGHT WITHIN REACH. WILL CONTINUE TO MONITOR.
[2016-06-08] VITALS: BP 113/69
--- NOTE | 2016-06-08 00:15 | NUR ---
VITAL SIGNS STABLE, NO SOB OR SIGN OF DISTRESS AT THIS TIME, CALL LIGHT WITHIN REACH. WILL CONTINUE TO MONITOR.
--- NOTE | 2016-06-08 01:56 | NUR ---
PATIENT SLEEPING, NO SOB OR SIGN OF DISTRESS AT THIS TIME, CALL LIGHT WITHIN REACH, WILL CONTINUE TO MONITOR.
--- NOTE | 2016-06-08 04:00 | NUR ---
PATIENT SITTING UP IN BEDSIDE CHAIR, NO SOB OR SIGN OF DISTRESS AT THIS TIME, CALL LIGHT WITHIN REACH. WILL CONTINUE TO MONITOR.
[2016-06-08] MEDS: CLINDAMYCIN 600 MG in DEXTROSE 5% 50 ML IV SCH (04:15)
[2016-06-08] MEDS: HYDROcodone/APAP 5/325 MG 1 TAB TAB PO PRN ×4 (04:30→21:50)
--- NOTE | 2016-06-08 04:36 | NUR ---
PT C/O PAIN 10/25, PULLED MORPHINE TO ADMINISTER PER MD ORDER, PATIENT CHANGE HIS MIND AND WANTED NORCO INSTEAD, WASTED MORPHINE, AKIN EDWARDS WITNESS. CALL LIGHT WITHIN REACH. WILL CONTINUE TO MONITOR.
--- NOTE | 2016-06-08 04:55 | NUR ---
CNAS OFFERED PATIENT A SHOWER OR BED BATH, PATIENT DENIED FOR THE MOMENT AND STATED HE WOULD THINK ABOUT IT. CALL LIGHT WITHIN REACH. WILL CONTINUE TO MONITOR
--- NOTE | 2016-06-08 07:26 | NUR ---
ENDORSED PATIENT TO DAY RN AT BEDSIDE, PATIENT IN STABLE CONDITION
[2016-06-08] MEDS: BLOOD GLUCOSE MONITORING 1 DEV DEV FS SCH ×4 (07:30→20:50)
--- NOTE | 2016-06-08 07:30 | NUR ---
RECEIVED PT SITTING ON CHAIR AAOX4 AND VOICED NO C/O PAIN VOICED AT THIS TIME. SHIFT ASSESSMENT DONE AND CHARTED. PLAN OF CARE, MEDS, TREATMENTS DISCUSSED WITH PT AND PT VERBALIZED UNDERSTANDING. WILL CONTINUE TO MONITOR PT.
[2016-06-08 08:00] VITALS: BP 112/61
[2016-06-08] MEDS: LISINOPRIL 5 MG TAB PO SCH (08:49)
[2016-06-08] MEDS: FUROSEMIDE 40 MG/4 ML VIAL IVP SCH (08:49)
[2016-06-08] MEDS: ENOXAPARIN 40 MG/0.4 ML SYR SUBQ SCH (09:22)
[2016-06-08] MEDS: VANCOMYCIN 2,000 MG in DEXTROSE 5% 250 ML IV SCH (09:23)
--- NOTE | 2016-06-08 09:40 | NUR ---
PT TOOK DIET, FLUIDS AND SCHEDULED PO MEDS WELL. PT'S MOTHER VISITING AT THIS TIME. DR. NEVAREZ WAS IN TO SEE PT AND MD LEFT NEW ORDERS.
[2016-06-08] MEDS ORDERED: ACETAMINOPHEN-H1 TA3 PO (10:23)
[2016-06-08] MEDS ORDERED: ACETAMINOPHEN325 M2 PO (10:23)
[2016-06-08] MEDS ORDERED: LOVENOX40 MG/0.1 SUBQ (10:23)
[2016-06-08] MEDS ORDERED: HUMALOG SL100 UNITS/ SUBQ (10:23)
--- NOTE | 2016-06-08 10:30 | NUR ---
PT NOT READY TO HAVE SHOWER AT THIS TIME PT WAS HAVING IV ANTIBIOTICS INFUSING. PT STATED THAT HE WILL HAVE IT LATER.
[2016-06-08] MEDS ORDERED: LEVOFLOXACIN 500 MG/D5W PREMIX 100 ML IV SCH (11:00)
--- NOTE | 2016-06-08 11:00 | NUR ---
WOUND CARE EVALUATION NOTES: REASON FOR EVALUATION: BLE CELLULITIS COMPLETE SKIN ASSESSMENT DONE ON THIS 40 Y/O MALE PATIENT FROM HOME TO [facility], WITH INITIAL DIAGNOSIS OF BLE CELLULITIS. PAST MEDICAL HISTORY INCLUDE DIABETES, HYPERTENSION AND MORBID OBESITY. ALL ABOVE INFORMATION WAS OBTAINED FROM THE ADMISSION H&P. LABS ARE WBC 6.4, H/H 11.6/35.9, GLUCOSE 112, ALBUMIN 2.7, PT/INR 11.1/1.2 AND PTT 29.4. CURRENT MEDS INCLUDE LEVOFLOXACIN, ENOXAPARIN, INSULIN, ATIVAN AND NORCO. PATIENT IS AWAKE, ORIENTED TO PERSON, PLACE, DATE AND TIME. ABLE TO FOLLOW SIMPLE COMMANDS. SKIN WARM TO TOUCH WNL, TOENAILS ARE THICKENED, +2 EDEMA, NO HAIR GROWTH, HEMOSIDERIN STAINING NOTED ON BLE AND BILATERAL PEDAL PULSES ARE FAINT. URINE AND BOWEL CONTINENT, ABLE TO USE URINALS CLAIMED. ABLE TO TURN SELF WITH MINIMAL ASSISTANCE. ABLE TO TRANSFER FROM BED TO CHAIR WITH MINIMAL ASSISTANCE. INITIAL PLAN OF CARE AND PRESSURE PREVENTIVE MEASURES DISCUSSED, ABLE TO VERBALIZE UNDERSTANDING. INTEGUMENTARY: BLE - VENOUS STASIS DERMATITIS RECOMMENDATIONS: -PLEASE APPLY VIT AND D OINT TO DRY SKIN DAILY AFTER SHOWER -ENCOURAGE PATIENT TO TURN AND REPOSITION SELF Q2H -ASSESS SKIN CONDITION DURING POSITION CHANGE, PLEASE PAY PARTICULAR ATTENTION TO SACRALCOCCYX, ELBOWS AND HEELS -OFFLOAD BILATERAL HEELS BY PLACING PILLOWS UNDER CALVES AT ALL TIMES, UNLESS OTHERWISE CONTRAINDICATED -PRESSURE REDISTRIBUTION SURFACE THERAPY BARIATRIC BED -PLEASE KEEP SKIN CLEAN AND DRY AT ALL TIMES. RECOMMENDATIONS DISCUSSED WITH PRIMARY RN. WILL FOLLOW UP Q 7 DAYS AND PRN. PLEASE CONTACT [facility] FOR ANY CONCERNS, QUESTIONS AND CHANGES IN SKIN CONDITION.
--- NOTE | 2016-06-08 11:18 | NUR ---
FAXED INITIAL REVIEW TO [facility] [phone] PHONE JONA [phone]
--- NOTE | 2016-06-08 12:05 | NUR ---
SS NOTE: PER [facility] JUYL TENORIO, TRY [facility] FIRST THEN [facility] IF [facility] IS UNABLE TO ACCEPT PT PER TERRI FROM [facility] ([phone]), PT CAN GO TO ROOM 211C ANYTIME ONCE THERE IS AN ETA FOR PT'S BARIATRIC BED TO ARRIVE AT THEIR FACILITY. SENT PHYSICIAN'S ORDER FOR BARIATRIC BED TO [facility], RECEIVED FAX CONFIRMATION
--- NOTE | 2016-06-08 12:30 | NUR ---
PT TOOK DIET AND FLUIDS WELL. NO C/O PAIN VOICED BY PT AT THIS TIME.
--- NOTE | 2016-06-08 13:01 | NUR ---
SS NOTE: PER LEONEL FROM [facility] ([phone]), THEY RECEIVED PT'S INFORMATION AND WILL CHECK TO SEE IF THEY RECEIVED AUTH FROM PT'S INSURANCE YET. SHE ALSO STATED THAT SHE WILL CALL BACK WITH AN ETA FOR THE DELIVERY OF PT'S [facility]IATRIC HOSPITAL BED TO [facility].
--- NOTE | 2016-06-08 13:48 | NUR ---
SPOKE WITH JONA FROM [facility]. THE AUTH FOR THE BARIATRIC BED FROM [facility], IS [id number]. THE AUTH FOR [facility] IS [id number]. FOR [facility] [id number]. I CALLED AND SET UP BARIATRIC GURNEY ON WILL CALL. PHONE [phone].
--- NOTE | 2016-06-08 15:00 | NUR ---
FLAT IRONER TRIED TO GIEV PT SHOWER BUT SOON WATER HIT HIS BODY PT LEFT SHOWER PT STATED THAT IT WAS COLD. PT REFUSED TO WAIT FOR WATER TO WARM UP AND GO BACK TAKE A SHOWER.
[2016-06-08 16:00] VITALS: BP 109/63
--- NOTE | 2016-06-08 16:36 | NUR ---
PER LASHAY, PLATFORM MATERIAL HANDLING SUPERVISOR, THE BARIATRIC BED WILL BE DELIVERED TO [facility] BY 8P.M. I SET UP BARIATRIC GURNEY TRANSPORT BY [facility] FOR 9:30P.M. YAJAIRA EDWARDS AWARE. I ALSO GAVE HIM THE INFORMATION ON [facility] AND THE PHONE NUMBER TO CALL REPORT. ASHLIE EDWARDSVETERINARY MILK SPECIALIST NURSE AWARE OF TIME OF PICKUP.
--- NOTE | 2016-06-08 16:51 | NUR ---
SS NOTE: I SPOKE WITH PT AND PT STATED THAT HE IS IN AGREEMENT WITH GOING TO [facility]. HE WAS ALSO MADE AWARE THAT GROUP TESTER WILL BE AT 930PM. HE REQUESTED THAT HIS SISTER, MONIKA BE CALLED TO BE INFORMED OF HIS TRANSFER AND TO REQUEST HOME CLOTHES. I LEFT A MESSAGE FOR PT'S SISTER, MONIKA REGARDING THE ABOVE INFORMATION.
--- NOTE | 2016-06-08 17:15 | NUR ---
PT'S IV SITE NOTED TO BE SLIGHTLY SWOLLEN. SAME REMOVED WITH OLD CATH TIP INTACT. PRESSURE DRESSINGS APPLIED TO SITE. NEW G22 IV INSERTED TO PT'S LT ARM AND PT TOLERATED IT WELL. PT TO BE DISCHARGED TO [facility] TONIGHT WITH IV ANTIBIOTIC AND PT AWARE. KERLIX DRESSINGS APPLIED TO SITE TO PROTECT FROM BEING ACCIDENTALLY REMOVED BY PT.
[2016-06-08] MEDS ORDERED: LEVAQUIN750 MG IV (18:23)
--- NOTE | 2016-06-08 18:36 | NUR ---
PT TOOK DIET AND FLUIDS WELL. NO CHANGES NOTED IN PT'S CONDITION.
--- NOTE | 2016-06-08 18:53 | NUR ---
REPORT GIVEN BY PHONE TO DAVIDSON EDWARDS OF [facility] [phone].
--- NOTE | 2016-06-08 19:20 | NUR ---
REPORT GIVEN TO JOSE ALFREDO CROWDER LVN . NO CHANGES NOTED IN PT'S CONDITION.
--- NOTE | 2016-06-08 19:21 | NUR ---
RECD. SITTING ON CHAIR, AWAKE, A/OX4, OBESE. RESPIRATION EVEN AND UNLABORED. IV SALINE LOCK AT THE RIGHT AC G24, PATENT AND INTACT. BILATERAL LOWER EXTREMITIES WITH CELLULITIS, PITTING EDEMA 3+. AWARE OF PL[facility] TRANSFER TO [facility]. DENIES PAIN 0/10.
--- NOTE | 2016-06-08 19:24 | NUR ---
Patient's Plan of Care was discussed and reviewed with CEMENT FINISHER HELPER: GABRIELA
--- NOTE | 2016-06-08 20:20 | NUR ---
ADDITIONAL DISCHARGE INSTRUCTIONS GIVEN. PATIENT VERBALIZED UNDERSTANDING. MOTHER AT THE BEDSIDE.
[2016-06-08] MEDS: SIMVASTATIN 20 MG TAB PO SCH (20:49)
--- NOTE | 2016-06-08 21:15 | NUR ---
REPORT GIVEN TO [facility].
[2016-06-08] MEDS ORDERED: HYDROcodone/APAP 5/325 MG 1 TAB TAB ONE (21:50)
--- NOTE | 2016-06-08 22:00 | NUR ---
TAKEN TO ER LOBBY PARKING VIA GURNEY IN STABLE CONDITION ACCOMPANIED BY [facility] FOR TRANSFER TO [facility].
[2016-06-08 23:21] VITALS: BP 104/68
[2016-06-09] MEDS ORDERED: VITAMIN A/VITAMIN D OINT 113 GM TUBE TP SCH (09:00)
== END 2016-06-08 21:50 | DRG 872 ==
LOC: MED 13:40 → MTU 17:40
PROVIDERS: ADMIT Hospitalist; ATTEND Hospitalist
DX: A41.9 Sepsis, unspecified organism (principal); L03.116 Cellulitis of left lower limb; Z68.45 Body mass index [BMI] 70 or greater, adult; L03.115 Cellulitis of right lower limb; I50.32 Chronic diastolic (congestive) heart failure; I87.2 Venous insufficiency (chronic) (peripheral); E11.9 Type 2 diabetes mellitus without complications; E66.01 Morbid (severe) obesity due to excess calories; E78.5 Hyperlipidemia, unspecified; I10 Essential (primary) hypertension; E78.00 Pure hypercholesterolemia, unspecified; Z79.82 Long term (current) use of aspirin; Z79.899 Other long term (current) drug therapy